=== PATIENT | male | born 2000 | race Caucasian/White ===

== ENCOUNTER 2020-09-25 22:50 | Emergency (ER) | payer OTHER ==
[~2020-09-25] VITALS: Ht 185.4 cm; Wt 123.2 kg
[2020-09-26] MEDS: LIDOCAINE W/EPINEPHRINE 1% 20ML VIAL SC ONE (01:21)
[2020-09-26 02:00] VITALS: BP 158/91
== END 2020-09-26 02:01 | disposition home or self-care (01) ==
LOC: M ED 22:50
DX: S01.511A Laceration without foreign body of lip, initial encounter (principal); W27.8XXA Contact with other nonpowered hand tool, initial encounter; Y92.59 Other trade areas as the place of occurrence of the external cause; Y93.89 Activity, other specified; Y99.8 Other external cause status